=== PATIENT | male | born 1955 | race Caucasian/White ===

== ENCOUNTER → 2023-08-23 | Outpatient (CLI) | payer MEDICARE ==
[2023-08-23 11:18] LABS: INR 0.9 (<1.2); Partial Thromboplastin Time 25.7 sec (22.0-30.0); Prothrombin Time 10.2 sec (10.0-12.5)
[2023-08-23 15:43] LABS: HCT 32.3 % (39.6-50.0); HGB 11.7 g/dL (13.0-17.0); MCH 33.1 pg (27.0-32.0); MCHC 36.2 g/dL (32.0-37.0); MCV 91.2 FL (80.0-97.0); Mean Platelet Volume 10.2 FL (9.5-12.2); NRBC Per 100 WBC 0 X 10*3/uL (0.00-0.01); Platelet Count 266 X 10*3/uL (140-440); RBC 3.54 X 10*6/uL (4.40-5.60); RDW 12.4 % (11.5-14.5); WBC 4.21 X 10*3/uL (4.50-10.00)
== END | disposition home or self-care (01) ==
LOC: LABWHC1 10:08
PROVIDERS: ATTEND Orthopaedic Surgery Sports Medicine
DX: Z01.812 Encounter for preprocedural laboratory examination (principal); M17.12 Unilateral primary osteoarthritis, left knee; Z22.322 Carrier or suspected carrier of Methicillin resistant Staphylococcus aureus
CPT/HCPCS: 36415; 85027; 85610; 85730; 87070

== ENCOUNTER 2023-09-19 05:35 | Day surgery (SDC) | payer MEDICARE ==
[~2023-09-19 05:35] MED LIST: ONDANSETRON 4 MG/2 ML VIAL IVP PRN; TRANEXAMIC 1,000 MG/100ML-NACL 1,000 MG in SALINE 1 100ML.BAG IVPB PRN
[2023-09-19] MEDS ORDERED: LIDOCAINE 1% (10MG/ML) FOR IV START INTRADERMA PRN (06:10)
[2023-09-19] MEDS: LACTATED RINGERS 1,000 ML IV ONE ×2 (06:13→09:11)
[2023-09-19] MEDS: DEXAMETHASONE SOD PHOSPHATE 4 MG/ML 1 ML VIAL IV ONE (06:42)
[2023-09-19] MEDS: GABAPENTIN 300 MG CAP PO PRN (06:42)
[2023-09-19] MEDS: ONDANSETRON 4 MG/2 ML VIAL IVP ONE (06:42)
[2023-09-19] MEDS: ACETAMINOPHEN TAB 500 MG TAB PO PRN (06:43)
[2023-09-19] MEDS: LACTATED RINGERS 1,000 ML IV SCH ×2 (06:43→11:31)
[2023-09-19] MEDS: MELOXICAM 7.5 MG TAB PO PRN (06:44)
[2023-09-19] MEDS: MIDAZOLAM 2 MG/2 ML VIAL IVP ONE ×2 (06:51→07:18)
[2023-09-19] MEDS ORDERED: HYDROmorphone 0.5 MG/0.5 ML SYRINGE IVP PRN ×3 (07:00→09:42)
[2023-09-19] MEDS ORDERED: MIDAZOLAM 2 MG/2 ML VIAL IV PRN (07:00)
[2023-09-19] MEDS ORDERED: fentaNYL (PF) 50 MCG/ML 2 ML AMP IVP PRN (07:00)
[2023-09-19] MEDS: ceFAZolin 3,000 MG in SODIUM CHLORIDE 0.9% IRRIGATIO 3,000 ML IRRIGATION ONE (07:36)
[2023-09-19] MEDS ORDERED: bisacodyL 10 MG SUPP RECTAL PRN (09:42)
[2023-09-19] MEDS ORDERED: NALOXONE 0.4 MG/ML 1 ML VIAL IV PRN (09:42)
[2023-09-19] MEDS ORDERED: ONDANSETRON 4 MG/2 ML VIAL IVP PRN (09:42)
[2023-09-19] MEDS ORDERED: NA PHOS,M-B/NA PHOS,DI-BA 133 ML ENEMA RECTAL PRN (09:42)
[2023-09-19] MEDS ORDERED: MAGNESIUM HYDROXIDE 2,400 MG/30 ML CUP PO PRN (09:42)
[2023-09-19] MEDS ORDERED: hydrOXYzine pamoate 25 MG CAP PO PRN (09:42)
[2023-09-19] MEDS: droPERidol 5 MG/2 ML VIAL IVP STA (09:46)
[2023-09-19] MEDS: HYDROmorphone 1 MG/ML 1 ML SYRINGE IVP PRN (10:00)
[2023-09-19] MEDS: KETOROLAC 15 MG/ML 1 ML VIAL IVP STA (10:00)
[2023-09-19] MEDS: ROPIVACAINE 1,100 MG, SODIUM CHLORIDE 0.9% 500 ML 330 ML, EMPTY PAIN BALL 1 EACH MISCELLANE PRN (10:01)
--- NOTE | 2023-09-19 10:15 | XR ---
EXAMINATION TYPE: XR knee limited LT DATE OF EXAM: 09/19/2023 CLINICAL HISTORY: Postoperative evaluation Two views of the left knee are submitted. Identified are changes of total knee arthroplasty with fem oral and tibial components appearing well seated. Postsurgical soft tissue changes are noted. Align ment is anatomic.
--- NOTE | 2023-09-19 10:34 | OP ---
OPERATIVE REPORT DATE OF SERVICE : 09/19/2023 [employer] SUPERVISOR: Char Blanc PA-C. PREOPERATIVE DIAGNOSIS: Left knee osteoarthrosis. POSTOPERATIVE DIAGNOSIS: Left knee osteoarthrosis. OPERATION: Left total knee arthroplasty. ANESTHESIA: Spinal with sedation. ESTIMATED BLOOD LOSS: 100 mL. TOURNIQUET TIME: 68 minutes at 250 mmHg. COMPLICATIONS: None apparent. DRAINS: None. DISPOSITION: Postanesthesia care unit. INDICATIONS FOR PROCEDURE: Peter is a very pleasant 68-year-old male with longstanding history of left knee pain. History and physical examination are consistent with advanced left knee osteoarthrosis. He has been through significant operative management up to this point. Further treatment options were discussed, and he has decided to go forward with a left total knee arthroplasty. The risks of procedure were discussed with him in detail. These risks included, but are not limited to risk of infection, nerve damage, bleeding, pain, and a small risk of deep vein thrombosis which could lead to fatal pulmonary embolism. There is also small risk of loosening of the implant, which could require revision operation. The patient understands these risks. All of his questions with regard to the procedure were answered to his satisfaction. Appropriate informed consent was obtained. DESCRIPTION OF PROCEDURE: The patient was identified in the preoperative holding area. Surgical site was marked by both the patient and myself. He was given 2 g of Ancef IV for prophylactic purposes. He was then transported to the operative suite. He was placed supine on the operating room table. A spinal anesthetic was then administered and dosed per the Anesthesia Department without apparent complication. Examination under anesthesia was then performed. The patient was 5 to 7 degrees shy of full extension. He had 100 degrees of flexion. Medial collateral ligament, lateral collateral ligament, and posterior cruciate ligaments were stable. Tourniquet was then placed high on the left upper thigh well-padded in preparation for surgery. The patient's left lower extremity was then prepped and draped in usual sterile fashion. Standard surgical pause was undertaken to ensure that we were operating the correct site and that appropriate preoperative antibiotics had been given. All staff in the room were in agreement, and then we proceeded. The outlines of the patella were marked with a surgical pen. A planned 12 cm vertical incision centered over the patella was marked with a surgical pen. The leg was then exsanguinated with an Esmarch dressing. The knee was then flexed, and the tourniquet was inflated to 250 mmHg. The total tourniquet time for the procedure was 68 minutes. Incision was then made with a 10-blade scalpel. Dissection was carried down sharply overlying fascia. Great care was taken to minimize the skin flaps. The knee was then exposed using a standard medial parapatellar approach. A small cuff of quadriceps tendon was then left for suturing. He was in quite a bit of varus preoperatively. A standard medial release was then made. The superficial medial collateral ligament was dissected off the bone around to the posterior aspect of the proximal tibia. The medial meniscus was then excised as well. The lateral meniscus was also released anteriorly. The leg was then externally rotated. The patella was everted. The knee was flexed. Retractors were then placed to protect the collateral ligaments. I then proceeded to remove the infrapatellar fat pad. This was excised sharply tangentially with the fibers of the patellar tendon. I then proceeded to remove the peripheral osteophytes. This was done with a rongeur. I then proceeded with the distal femoral resection. He did have a flexion contracture. A planned 11 mm resection was then done. The femoral canal was then entered in the midline, the femur approximately 10 mm anterior to the origin of the posterior cruciate ligament. The elma was then advanced down the center of the femur and placed intramedullary. Based on the preoperative radiographs, the angle between the anatomic and mechanical axis of the femur was approximately 4 to 5 degrees. The valgus angle of the distal femoral cutting guide was set at 4 degrees for the left knee. The distal femoral cutting guide was then advanced over the intramedullary elma. This was seated firmly against the femur. Then, as mentioned, planned to take 11 mm off the distal femur. The cutting block was then secured onto the femur with pins. The jig was then removed. The distal femoral cut was made through the slot of the block. The pins were then removed. The distal femoral cutting block was removed. The accuracy of the distal femoral cuts was checked with 2 flat bars. I then proceeded with femoral sizing. Posterior referencing sizing guide was held firmly against the resected distal surface of the femur. The posterior condyles were resting on the posterior plane of the guide. The sizing stylus was then placed onto the anterior femur. The size was measured as a size 10. I then assessed for femoral rotation. The plan was for 3 degrees of external rotation. Three degrees of external rotation was placed onto the jig. These holes were then marked. I then confirmed the rotation by 3 separate methods. This was done using the epicondylar axis as well as Whitesides line and posterior referencing. It was deemed that the external rotation was proper. I then went forward with placement of the femoral cutting block. This was placed over the previously-placed pin holes. The Alverto wing was then placed on the anterior slots to ensure that we would not notch the anterior femur with the anterior femoral cut. I then proceeded with the anterior femoral cut. This was flushed with the anterior cortex of the femur. The posterior cuts were then made followed by the anterior chamfer cut, then the posterior chamfer cut. The cutting block was then removed. Throughout the resection, the collateral ligaments were protected with retractors. I then placed a trial size 10 femur. It fit very nice mediolateral and flush with the distal end of the femur. The drill holes were then made. I then proceeded with the tibial cut. I planned for cruciate-retaining knee. The guide was placed and set for varus, valgus, and for slope. Height set for approximate 2 mm resection from the medial tibial plateau, which was the lower side. I was happy with the alignment and the amount of resection. The cutting block was then pinned to the proximal tibia. The alignment elma was removed and the proximal tibia was resected with a reciprocating saw. Again, this was done with retractors protecting the collateral ligaments as well as the posterior cruciate ligament. I then proceeded to evaluate the flexion and extension gaps. A 10 mm block was then placed. The flexion extension gaps were equal. I then proceeded with resection of posterior osteophytes. He had very minimal posterior osteophytes. This was done using a curved osteotome. This resected the posterior osteophytes, and posterior capsular stripping was done off the posterior aspect of the femur. The osteophytes were then removed. I then proceeded to resect the patella. The thickness of the patella was measured using the caliper. The thickness was approximately 24 mm. The thickness of the anticipated patellar dome was taken into account. Resection was then performed and confirmed to be equal in 4 quadrants using a caliper. Approximately 14 mm of bone remained after resection. A 32 x 8.5 mm standard patellar trial was then placed. The holes were drilled and the trial was then placed. I then proceeded with sizing tibial plate. A size F tibial plate fit very nicely. I then placed the trial femur, the tibial tray, and the patellar button. A 10 mm trial tibial insert was also placed. The components fit very nicely. He had full extension and flexion. The extension and flexion gaps were equal and stable to both varus and valgus stress. The patella tracked appropriately. The tibial tray rotation was then marked with a Bovie. This was externally rotated properly. I then proceeded with tibial preparation. I first drilled the femoral holes and removed the femoral component. The tibial tray was then set for proper external rotation as well as medial lateral placement onto the tibia. It was then pinned into place. I then proceeded with punching the keel. I then decided to proceed with cementing of all our components. The knee was thoroughly irrigated with sterile saline solution via pulse lavage. The lateral geniculate artery was identified and cauterized. All blood was removed from the bone of the tibia, femur, and patella with pulsed lavage. I then proceeded with cementing. Two packs of antibiotic bone cement prepared on the back table by manager surgical. I then proceeded with cementing of the tibia first. Cement was impacted in the keel as well as deeply seated into the bone. A second coat cement was then placed. The tibia was then impacted into place. Excess cement was removed with Ashley's and Jokers. I then proceeded with cementing of the femoral component. The femoral component was also cemented using standard technique. Excess cement was removed. A 10 mm trial to the tibial insert was then placed in the knee. It was brought into full extension with a constant axial load placed until the cement had hardened. The patellar component was also cemented. This was held firmly with a compressive device until the cement had dried. When the cement had dried, the knee was taken out of extension. All excess cement was removed from around the prosthesis. I then trialed the knee with a 10 mm insert. Flexion and extension gaps were appropriate. I then trialed with a 12 mm insert. Flexion and extension gaps felt much better. The knee was stable with a 12 mm insert. It came into full extension. I decided to go forward with the 12 mm medial congruent cross-linked cruciate-retaining hip tibial insert. Polyethylene was then placed on the tibial tray and locked into place. The knee was then reduced. The knee was again further irrigated with sterile saline solution with antibiotic added. The tourniquet was then deflated. Total tourniquet time for the procedure was 68 minutes at 250 mmHg. Final components were Radha Persona size 10 cruciate-retaining femoral component, size F tibial tray, a 12 mm medial congruent cruciate-retaining polyethylene insert, and a 32 x 8.5 mm patella. I then proceeded with closure. Again, the knee was thoroughly irrigated. The quadriceps tendon and the medial retinaculum were reapproximated with #2 Ethibond suture. The extensor mechanism was then closed with a running #2 Quill suture. Subcutaneous tissues were closed with 2-0 Vicryl interrupted suture. The skin was closed with a running 3-0 Quill suture. Dermabond was applied to the incision. Sterile compressive dressings were applied. All sponge and needle counts were deemed correct prior to closure. The patient tolerated the procedure without apparent complication. He was transferred to recovery room in stable condition. MMODL / IJN: [id number] /
[2023-09-19] MEDS: hydrALAZINE HCL 20 MG/ML 1 ML VIAL IVP STA (11:27)
[2023-09-19] MEDS: HYDROcodone/APAP 10-325MG 1 EACH TAB PO PRN (11:44)
[2023-09-19] MEDS ORDERED: CYCLOBENZAPRINE 10 MG TAB PO PRN (11:45)
--- NOTE | 2023-09-19 17:42 | P.CONS ---
History of Present Illness - Reason for Consult Consult date: 09/19/23 Medical management Requesting physician: Justin Ramey - Chief Complaint Left knee surgery - History of Present Illness This is a pleasant 68-year-old patient who follows with Dr. Amor Silva/Ronald Powell. Chronic stable medical condition include GERD, hypertension, osteoarthritis, pulmonary embolism over 3 years ago with COVID, pain stimulator for arm pain. Has had multiple surgeries in the right arm back surgeries because of accident. Has had a previous gastric bypass. Patient is undergone left total knee arthroplasty. Some pain is present. Family is at bedside. No nausea vomiting. Denies any cardiac symptoms. 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 Smoked for 30 years 1 pack a day stopped in 1997. No alcohol. Physical examination: VITAL SIGNS: 97.8, 106, 17, 136/77, 93% room air GENERAL: BMI 31.7, reclining bed awake comfortable. EYES: Pupils equal. Conjunctiva savanna l. HEENT: External appearance of nose and ears normal, oral cavity grossly normal. NECK: JVD not raised; masses not palpable. HEART: First and second heart sounds are normal; no edema. LUNGS: Respiratory rate normal; clear to auscultation. ABDOMEN: Soft, nontender, liver spleen not palpable, no masses palpable. PSYCH: Alert and oriented x3; mood and affect savanna l. MUSCULOSKELETAL:No Clubbing/cyanosis;muscles-grossly intact. Tank wrap to her left knee. OA. NEUROLOGICAL: Cranial nerves grossly intact; no facial asymmetry, power and sensation grossly intact. LYMPHATICS: No lymph nodes palpable in the axilla and neck INVESTIGATIONS, reviewed in the clinical context: August 22: White count 4.2 hemoglobin 11.7 platelets 266 Assessment and plan: -Left total knee arthroplasty Aspirin for DVT prophylaxis. IV cefazolin for infection prophylaxis. Pain control -Chronic pain in the lower back and right arm. Has a Dilaudid pain pump -Essential hypertension Losartan 50 mg a day -GERD Prilosec 20 mg a day -Muscle spasms Flexeril -History of gastric bypass surgery -Obesity BMI 31.7 Weight loss measures -Care was discussed with the patient. Questions answered. Thank you Dr. Ramey Past Medical History Past Medical History: GERD/Reflux, Hypertension, Musculoskeletal Disorder, Osteoarthritis (OA), Pulmonary Embolus (PE) Additional Past Medical History / Comment(s): PE >3 yrs ago due to covid, pain stimulator for arm pain, pain pump History of Any Multi-Drug Resistant Organisms: None Reported Past Surgical History: Back Surgery, Bariatric Surgery, Hernia Repair, Orthopedic Surgery Additional Past Surgical History / Comment(s): back surgery fusion w hardware-5 back surgeries, multiple surgeries right arm w/hardware due to accident, pain stimulator cervical to help w/arm pain, gastric bypass, pain pump insertion Past Anesthesia/Blood Transfusion Reactions: No Reported Reaction Additional Past Anesthesia/Blood Transfusion Reaction / Comm: no hx. of blood transfusion Past Psychological History: No Psychological Hx Reported Smoking Status: Former smoker Past Alcohol Use History: None Reported Additional Past Alcohol Use History / Comment(s): quit smoking 1997, smoked 30 yrs., 1ppd Past Drug Use History: None Reported - Past Family History Daughter(s) Family Medical History: Deep Vein Thrombosis (DVT) Medications and Allergies Home Medications Medication Instructions Recorded Confirmed Type Omeprazole [PriLOSEC] 20 mg PO DAILY 02/24/17 09/19/23 History Cetirizine HCl [Zyrtec] 10 mg PO DAILY 09/17/23 09/19/23 History Cyclobenzaprine [Flexeril] 10 mg PO BID PRN 09/17/23 09/19/23 History Dilaudid Pain Pump INTRATHECA CONTINUOUS 09/17/23 History HYDROcodone/APAP 7.5-325MG [[place] 1 tab PO TID PRN 09/17/23 09/19/23 History 7.5-325] Losartan Potassium 50 mg PO DAILY 09/17/23 09/19/23 History ondansetron HCL [Ondansetron HCl] 8 mg PO DAILY PRN 09/17/23 09/19/23 History Cholecalciferol (Vitamin D3) 2,000 unit PO DAILY 09/18/23 09/19/23 History [Vitamin D3 (50 Mcg = 2000 Iu) Chew Tab] Cholecalciferol (Vitamin D3) 250 mcg PO DIRECTED 09/18/23 09/19/23 History [Vitamin D3] Cyanocobalamin (Vitamin B-12) 1,000 mcg PO DAILY 09/18/23 09/19/23 History [Vitamin B-12] Ferrous Sulfate [Feosol] 65 mg PO DAILY 09/18/23 09/19/23 History Multivitamins, Thera [Multivitamin 1 tab PO DAILY 09/18/23 09/19/23 History (formulary)] Zinc With Vitamin C 1 tab PO DAILY 09/18/23 09/19/23 History Aspirin [Adult Low Dose Aspirin EC] 81 mg PO BID #1 tab 09/19/23 Rx HYDROcodone/APAP 10-325MG [[place] 1 tab PO Q6HR PRN #28 tab 09/19/23 Rx 10-325] Meloxicam 7.5 mg PO DAILY #30 tab 09/19/23 Rx Ondansetron Odt [Zofran Odt] 4 mg PO Q8HR PRN #14 tab 09/19/23 Rx Sennosides-Docusate Sodium 1 tab PO BID #60 tablet 09/19/23 Rx [Senokot-S] Allergies Allergy/AdvReac Type Severity Reaction Status Date / Time blueberry Allergy Rash/Hives Verified 09/19/23 06:24 Physical Exam Vitals: Vital Signs Temp Pulse Pulse Resp BP BP Pulse Ox 09/19/23 10:50 73 16 155/80 95 09/19/23 10:41 167/83 09/19/23 10:36 68 16 181/88 95 09/19/23 10:21 59 L 16 187/98 100 09/19/23 10:06 58 L 22 198/95 100 09/19/23 09:51 59 L 24 204/93 100 09/19/23 09:36 97.6 F 64 28 H 190/92 100 09/19/23 07:17 59 L 16 160/74 97 09/19/23 06:24 98 F 58 L 16 156/80 98 Intake and Output 09/18/23 09/19/23 09/19/23 22:59 06:59 14:59 Intake Total 200 951 Output Total 100 Balance 200 851 Intake: IV 200 951 Output: Estimated Blood Loss 100 Other: Weight 100.2 kg 100.2 kg
--- NOTE | 2023-09-19 20:57 | P.ANPRN ---
Procedure Note - Anesthesia - Nerve Block Performed Left Adductor Canal Infusion Time Out Performed: Yes Date of Procedure: 09/19/23 Procedure Start Time: 06:50 Procedure Stop Time: 06:59 Location of Patient: PreOp Indication: Acute Post-Operative Pain, Requested by Surgeon Sedation Type: Sedate with meaningful contact maintained Preparation: Sterile Prep, Sterile Dressing Position: Supine Catheter: Indwelling Needle Types: Pajunk Needle Gauge: 21 Ultrasound used to visualize needle placement: Yes Ultrasound used to observe medication spread: Yes Blood Aspirated: No Pain Paresthesia on Injection Noted: No Resistance on Injection: Normal Image Stored and Saved: Yes Events: Uneventful and Well Tolerated (Ropivacaine 0.5% 20 cc plus dexamethasone 4 mg)
--- NOTE | 2023-09-19 20:58 | P.ANPRN ---
Procedure Note - Anesthesia - Nerve Block Performed Left iPack Single Time Out Performed: Yes Date of Procedure: 09/19/23 Procedure Start Time: 07:00 Procedure Stop Time: 07:03 Location of Patient: PreOp Indication: Acute Post-Operative Pain, Requested by Surgeon Sedation Type: Sedate with meaningful contact maintained Preparation: Sterile Prep Position: Supine Needle Types: Pajunk Needle Gauge: 21 Ultrasound used to visualize needle placement: Yes Ultrasound used to observe medication spread: Yes Blood Aspirated: No Pain Paresthesia on Injection Noted: No Resistance on Injection: Normal Image Stored and Saved: Yes Events: Uneventful and Well Tolerated (Ropivacaine 0.5% 20 cc plus dexamethasone 4 mg)
[2023-09-19] MEDS ORDERED: TEMAZEPAM 15 MG CAP PO PRN (21:00)
[2023-09-19] MEDS: SENNOSIDES-DOCUSATE SODIUM 1 EACH TAB PO SCH (21:13)
[2023-09-19] MEDS: ASPIRIN 81 MG PO SCH (21:13)
[2023-09-20] MEDS: ONDANSETRON 4 MG TAB PO PRN (01:53)
[2023-09-20] MEDS: PANTOPRAZOLE 40 MG TABLET PO SCH (05:13)
[2023-09-20] MEDS: MELOXICAM 7.5 MG TAB PO SCH (08:23)
[2023-09-20] MEDS: FERROUS SULFATE 325 MG TAB PO SCH (08:23)
[2023-09-20] MEDS: LOSARTAN 50 MG TAB PO SCH (08:24)
[2023-09-20] MEDS: MULTIVITAMINS, THERA 1 EACH TAB PO SCH (08:24)
[2023-09-20] MEDS: LORATADINE 10 MG TAB PO SCH (08:25)
[2023-09-20] MEDS: CHOLECALCIFEROL 25 MCG (1000 IU) TABLET PO SCH (08:29)
--- NOTE | 2023-09-20 08:55 | P.DS ---
Providers Expected date of discharge: 09/20/23 Attending physician: Justin Ramey Consults: 09/19/23 10:42 Consult Physician Urgent Consulting Provider: Pedro Guo Consult Reason/Comments: Medical management Do you want consulting provider notified?: Yes Primary care physician: Amor Silva - Discharge Diagnosis(es) (1) Primary localized osteoarthritis of left knee Current Visit: Yes Status: Acute (2) Status post total left knee replacement Current Visit: Yes Status: Acute Hospital Course: This is a 68-year-old male who was last seen with complaint of continued left knee pain. The patient has a known history of degenerative arthritis of the lef t knee and presents to discuss surgical options. After discussion and consideration the patient elects to proceed with total left knee arthroplasty. The patient is seen preoperatively by his primary care physician and cleared for surgery. The patient is admitted to [facility] for total left knee arthroplasty. The procedures performed without complication or sequelae. He is doing well postoperatively. Vital signs are stable at discharge. Labs are stable at discharge. the patient is ambulating well with walker with minimal assistance. The patient is discharged to home on postop day # 1 pending medical clearance. Please see orders and refer to the [facility] for accurate list of medications. Patient Condition at Discharge: Good Plan - Discharge Summary Discharge Rx Participant: Yes New Discharge Prescriptions: New Meloxicam 7.5 mg PO DAILY #30 tab HYDROcodone/APAP 10-325MG [[place] 10-325] 1 tab PO Q6HR PRN #28 tab PRN Reason: Pain Aspirin [Adult Low Dose Aspirin EC] 81 mg PO BID #1 tab Sennosides-Docusate Sodium [Senokot-S] 1 tab PO BID #60 tablet Ondansetron Odt [Zofran Odt] 4 mg PO Q8HR PRN #14 tab PRN Reason: Nausea No Action Omeprazole [PriLOSEC] 20 mg PO DAILY Cetirizine HCl [Zyrtec] 10 mg PO DAILY HYDROcodone/APAP 7.5-325MG [[place] 7.5-325] 1 tab PO TID PRN PRN Reason: Pain Losartan Potassium 50 mg PO DAILY ondansetron HCL [Ondansetron HCl] 8 mg PO DAILY PRN PRN Reason: Nausea Dilaudid Pain Pump INTRATHECA CONTINUOUS Cholecalciferol (Vitamin D3) [Vitamin D3] 250 mcg PO DIRECTED Cyclobenzaprine [Flexeril] 10 mg PO BID PRN PRN Reason: Muscle Spasm Ferrous Sulfate [Feosol] 65 mg PO DAILY Multivitamins, Thera [Multivitamin (formulary)] 1 tab PO DAILY Zinc With Vitamin C 1 tab PO DAILY Cyanocobalamin (Vitamin B-12) [Vitamin B-12] 1,000 mcg PO DAILY Cholecalciferol (Vitamin D3) [Vitamin D3 (50 Mcg = 2000 Iu) Chew Tab] 2,000 unit PO DAILY Discharge Medication List Omeprazole [PriLOSEC] 20 mg PO DAILY 02/24/17 [History] Cetirizine HCl [Zyrtec] 10 mg PO DAILY 09/17/23 [History] Cyclobenzaprine [Flexeril] 10 mg PO BID PRN 09/17/23 [History] Dilaudid Pain Pump INTRATHECA CONTINUOUS 09/17/23 [History] HYDROcodone/APAP 7.5-325MG [[place] 7.5-325] 1 tab PO TID PRN 09/17/23 [History] Losartan Potassium 50 mg PO DAILY 09/17/23 [History] ondansetron HCL [Ondansetron HCl] 8 mg PO DAILY PRN 09/17/23 [History] Cholecalciferol (Vitamin D3) [Vitamin D3 (50 Mcg = 2000 Iu) Chew Tab] 2,000 unit PO DAILY 09/18/23 [History] Cholecalciferol (Vitamin D3) [Vitamin D3] 250 mcg PO DIRECTED 09/18/23 [History] Cyanocobalamin (Vitamin B-12) [Vitamin B-12] 1,000 mcg PO DAILY 09/18/23 [History] Ferrous Sulfate [Feosol] 65 mg PO DAILY 09/18/23 [History] Multivitamins, Thera [Multivitamin (formulary)] 1 tab PO DAILY 09/18/23 [History] Zinc With Vitamin C 1 tab PO DAILY 09/18/23 [History] Aspirin [Adult Low Dose Aspirin EC] 81 mg PO BID #1 tab 09/19/23 [Rx] HYDROcodone/APAP 10-325MG [[place] 10-325] 1 tab PO Q6HR PRN #28 tab 09/19/23 [Rx] Meloxicam 7.5 mg PO DAILY #30 tab 09/19/23 [Rx] Ondansetron Odt [Zofran Odt] 4 mg PO Q8HR PRN #14 tab 09/19/23 [Rx] Sennosides-Docusate Sodium [Senokot-S] 1 tab PO BID #60 tablet 09/19/23 [Rx] Follow up Appointment(s)/Referral(s): Justin Ramey MD [STAFF PHYSICIAN] - 2 Weeks Activity/Diet/Wound Care/Special Instructions: May bear wt as tolerated w walker. May change dressing 48h post op. May shower 48h post op.
[2023-09-20] MEDS ORDERED: CHOLECALCIFEROL 25 MCG (1000 IU) TABLET PO SCH (09:00)
--- NOTE | 2023-09-20 09:29 | P.PN ---
Progress Note - Text 09/20/23 615am 68-year-old male status post total knee replacement, patient has an On-Q pump for for postop pain control, solution is running at 8 cc an hour with a VAS of 5. Dressing clean dry and intact. Plan to continue On-Q pump infusion
[2023-09-20 10:33] LABS: Basophils # (A) 0.01 X 10*3/uL (0.00-0.10); Basophils % (A) 0.1 %; Eosinophils # (A) 0.06 X 10*3/uL (0.04-0.35); Eosinophils % (A) 0.7 %; HCT 30.6 % (39.6-50.0); HGB 10.5 g/dL (13.0-17.0); Lymphocytes # (A) 1.71 X 10*3/uL (0.90-5.00); Lymphocytes % (A) 21.3 %; MCH 32.2 pg (27.0-32.0); MCHC 34.3 g/dL (32.0-37.0); MCV 93.9 FL (80.0-97.0); Mean Platelet Volume 9.7 FL (9.5-12.2); Monocytes # (A) 0.79 X 10*3/uL (0.20-1.00); Monocytes % (A) 9.8 %; NRBC Per 100 WBC 0 X 10*3/uL (0.00-0.01); Neutrophils # (A) 5.44 X 10*3/uL (1.80-7.70); Neutrophils % (A) 67.9 %; Platelet Count 242 X 10*3/uL (140-440); RBC 3.26 X 10*6/uL (4.40-5.60); RDW 12.4 % (11.5-14.5); WBC 8.03 X 10*3/uL (4.50-10.00)
[2023-09-20 10:40] VITALS: BP 157/74; PULSE 85; RESP 18; TEMP 97.6
--- NOTE | 2023-09-20 17:02 | P.PN ---
Progress Note - Text Progress Note Date: 09/20/23 - Chief Complaint Left knee surgery - History of Present Illness This is a pleasant 68-year-old patient who follows with Dr. Amor Silva/Ronald Powell. Chronic stable medical condition include GERD, hypertension, osteoarthritis, pulmonary embolism over 3 years ago with COVID, pain stimulator for arm pain. Has had multiple surgeries in the right arm back surgeries because of accident. Has had a previous gastric bypass. Patient is undergone left total knee arthroplasty. Some pain is present. Family is at bedside. No nausea vomiting. Denies any cardiac symptoms. September 19: Doing well. Did ambulate. Oral intake good. No new issues. Discussed. 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 Smoked for 30 years 1 pack a day stopped in 1997. No alcohol. Physical examination: VITAL SIGNS: 97.6, 85, 18, 157/74, 93% room air GENERAL:, Double EYES: Pupils equal. Conjunctiva savanna l. HEENT: External appearance of nose and ears normal, oral cavity grossly normal. NECK: JVD not raised; masses not palpable. HEART: First and second heart sounds are normal; no edema. LUNGS: Respiratory rate normal; clear to auscultation. ABDOMEN: Soft, nontender, liver spleen not palpable, no masses palpable. PSYCH: Alert and oriented x3; mood and affect savanna l. MUSCULOSKELETAL:No Clubbing/cyanosis;muscles-grossly intact. Tank wrap to her left knee. OA. INVESTIGATIONS, reviewed in the clinical context: September 19: White count 8.0 hemoglobin 10.5 platelets 242 August 22: White count 4.2 hemoglobin 11.7 platelets 266 Assessment and plan: -Left total knee arthroplasty Aspirin for DVT prophylaxis. IV cefazolin for infection prophylaxis. Pain control -Chronic pain in the lower back and right arm. Has a Dilaudid pain pump -Acute postprocedure blood loss anemia expected from surgery Ferrous sulfate -Essential hypertension Losartan 50 mg a day -GERD Prilosec 20 mg a day -Muscle spasms Flexeril -History of gastric bypass surgery Patient takes multiple supplements -Obesity BMI 31.7 Weight loss measures Discussed with patient. Follow-up PCP. Thank you Dr. Ramey Past Medical History Past Medical History: GERD/Reflux, Hypertension, Musculoskeletal Disorder, Osteoarthritis (OA), Pulmonary Embolus (PE) Additional Past Medical History / Comment(s): PE >3 yrs ago due to covid, pain stimulator for arm pain, pain pump History of Any Multi-Drug Resistant Organisms: None Reported Past Surgical History: Back Surgery, Bariatric Surgery, Hernia Repair, Orthopedic Surgery Additional Past Surgical History / Comment(s): back surgery fusion w hardware-5 back surgeries, multiple surgeries right arm w/hardware due to accident, pain stimulator cervical to help w/arm pain, gastric bypass, pain pump insertion Past Anesthesia/Blood Transfusion Reactions: No Reported Reaction Additional Past Anesthesia/Blood Transfusion Reaction / Comm: no hx. of blood transfusion Past Psychological History: No Psychological Hx Reported Smoking Status: Former smoker Past Alcohol Use History: None Reported Additional Past Alcohol Use History / Comment(s): quit smoking 1997, smoked 30 yrs., 1ppd Past Drug Use History: None Reported
== END 2023-09-20 13:35 | disposition home health service (06) ==
LOC: OR 05:35 → 4SSUR 09:28 → OR 09-20 13:35
PROVIDERS: ATTEND Orthopaedic Surgery Sports Medicine
DX: M17.12 Unilateral primary osteoarthritis, left knee (principal); D62 Acute posthemorrhagic anemia; E66.9 Obesity, unspecified; G89.18 Other acute postprocedural pain; G89.29 Other chronic pain; I10 Essential (primary) hypertension; K21.9 Gastro-esophageal reflux disease without esophagitis; Z68.31 Body mass index [BMI] 31.0-31.9, adult; Z79.1 Long term (current) use of non-steroidal anti-inflammatories (NSAID); Z79.82 Long term (current) use of aspirin; Z79.899 Other long term (current) drug therapy; Z86.16 Personal history of COVID-19; Z86.711 Personal history of pulmonary embolism; Z98.84 Bariatric surgery status; Z98.890 Other specified postprocedural states
CPT/HCPCS: 97162; 64999; 64448; 85025; 73560; 27447; C1776; C1713; C1751; J2250; J1100; J0690 ×3; J2405; J1170 ×2; J2795; J1885; J1790

== ENCOUNTER 2024-05-21 07:23 | Day surgery (SDC) | payer MEDICARE ==
[2024-05-18 14:12] VITALS: BMI 34.2
[~2024-05-21 07:23] MED LIST changes: +LIDOCAINE 1% (10MG/ML) FOR IV START INTRADERMA PRN; +fentaNYL (PF) 50 MCG/ML 2 ML AMP IVP PRN
[2024-05-21] MEDS: IV FLUID CONTINUATION 1,000 ML IV ONE ×2 (08:22→09:34)
[2024-05-21] MEDS: DEXAMETHASONE SOD PHOSPHATE 4 MG/ML 1 ML VIAL IV ONE (08:23)
[2024-05-21] MEDS: ONDANSETRON 4 MG/2 ML VIAL IVP ONE (08:23)
[2024-05-21] MEDS: MELOXICAM 7.5 MG TAB PO PRN (08:24)
[2024-05-21] MEDS: LACTATED RINGERS 1,000 ML IV SCH ×2 (08:24→14:40)
[2024-05-21] MEDS: ACETAMINOPHEN TAB 500 MG TAB PO PRN (08:24)
[2024-05-21] MEDS: GABAPENTIN 300 MG CAP PO PRN (08:24)
[2024-05-21] MEDS: MIDAZOLAM 2 MG/2 ML VIAL IV PRN (08:31)
[2024-05-21] MEDS ORDERED: MAGNESIUM HYDROXIDE 2,400 MG/30 ML CUP PO PRN (09:10)
[2024-05-21] MEDS ORDERED: NA PHOS,M-B/NA PHOS,DI-BA 133 ML ENEMA RECTAL PRN (09:10)
[2024-05-21] MEDS ORDERED: bisacodyL 10 MG SUPP RECTAL PRN (09:10)
[2024-05-21] MEDS ORDERED: NALOXONE 0.4 MG/ML 1 ML VIAL IV PRN (09:10)
[2024-05-21] MEDS ORDERED: traMADol 50 MG TAB PO PRN (09:10)
[2024-05-21] MEDS ORDERED: HYDROmorphone 0.5 MG/0.5 ML SYRINGE IVP PRN ×2 (09:10)
[2024-05-21] MEDS ORDERED: oxyCODONE-APAP 7.5-325MG 1 EACH TAB PO PRN (09:13)
[2024-05-21] MEDS ORDERED: SUCCINYLCHOLINE CHLORIDE 200 MG/10 ML VIAL IV ONE (09:32)
[2024-05-21] MEDS ORDERED: TRANEXAMIC 1,000 MG/100ML-NACL PREMIX BAG ONE (09:32)
[2024-05-21] MEDS ORDERED: ROPIVACAINE 5 MG/ML 30 ML VIAL ONE (09:32)
[2024-05-21] MEDS ORDERED: DEXAMETHASONE SOD PHOSPHATE 4 MG/ML 1 ML VIAL ONE (09:32)
[2024-05-21] MEDS ORDERED: PROPOFOL 10 MG/ML 20 ML VIAL IV ONE (09:32)
[2024-05-21] MEDS ORDERED: ROCURONIUM 10 MG/ML (5 ML VIAL) IV ONE (09:32)
[2024-05-21] MEDS ORDERED: hydrALAZINE HCL 20 MG/ML 1 ML VIAL ONE (09:32)
[2024-05-21] MEDS ORDERED: KETAMINE HCL IN 0.9 % NACL 50 MG/5 ML SYRINGE ONE (09:32)
[2024-05-21] MEDS ORDERED: NEOSTIGMINE 1 MG/ML 10 ML VIAL ONE (09:32)
[2024-05-21] MEDS ORDERED: GLYCOPYRROLATE 0.2 MG/ML 2 ML VIAL ONE (09:32)
[2024-05-21] MEDS ORDERED: LIDOCAINE 1% INJ 10MG/ML (20 ML MDV) ONE (09:32)
[2024-05-21] MEDS ORDERED: fentaNYL (PF) 50 MCG/ML 2 ML AMP ONE (09:32)
[2024-05-21] MEDS ORDERED: MIDAZOLAM 2 MG/2 ML VIAL ONE (09:32)
[2024-05-21] MEDS: ceFAZolin 3,000 MG in SODIUM CHLORIDE 0.9% IRRIGATIO 3,000 ML IRRIGATION ONE (09:58)
[2024-05-21] MEDS: LACTATED RINGERS 1,000 ML IV ONE (11:07)
[2024-05-21] MEDS: HYDROmorphone 0.5 MG/0.5 ML SYRINGE IVP PRN ×2 (11:54→14:40)
--- NOTE | 2024-05-21 12:14 | XR ---
EXAMINATION TYPE: XR knee limited RT DATE OF EXAM: 05/21/2024 12:09 PM COMPARISON: None. CLINICAL INDICATION: Male, 69 years old with history of Evaluation for Postop abnormality and alignme nt, pain TECHNIQUE: 2 view(s) obtained. FINDINGS: Tibial and femoral components have been placed. No acute fracture or dislocation evident. Postsurgica l soft tissue changes are evident. IMPRESSION: 1. No acute fractures post right knee replacement [facility], , 05/21/2024 12:12 PM
[2024-05-21] MEDS: ROPIVACAINE 1,100 MG, SODIUM CHLORIDE 0.9% 500 ML 330 ML, EMPTY PAIN BALL 1 EACH MISCELLANE PRN (12:28)
--- NOTE | 2024-05-21 12:56 | OP ---
OPERATIVE REPORT DATE OF SERVICE : 05/21/2024 PREOPERATIVE DIAGNOSIS: Right knee osteoarthrosis. POSTOPERATIVE DIAGNOSIS: Right knee osteoarthrosis. OPERATION: Right total knee arthroplasty. ANESTHESIA: General endotracheal. ESTIMATED BLOOD LOSS: 100 mL. TOURNIQUET TIME: 54 minutes at 250 mmHg. COMPLICATIONS: None apparent. DRAINS: None. DISPOSITION: Postanesthesia care unit. INDICATIONS FOR PROCEDURE: Peter is a very pleasant 69-year-old male with longstanding history of right knee pain. History and physical examination are consistent with advanced right knee osteoarthrosis. He has been through significant operative management up to this point. The treatment options were discussed, and he decided to go forward with a right total knee arthroplasty. Risks of procedure were discussed with him in detail. These risks included, but were not limited to, risk of infection, nerve damage, bleeding, pain, and a small risk of deep vein thrombosis which could lead to fatal pulmonary embolism. There is also small risk of loosening of the implant which could require revision operation. The patient understands these risks. All of his questions with regard to the procedure were answered to his satisfaction. Appropriate informed consent was obtained. DESCRIPTION OF PROCEDURE: The patient was identified in the preoperative holding area. Surgical site was marked by both the patient and myself. He was given 2 g of Ancef IV for prophylactic purposes. He was then transported to the operative suite. He was placed supine on the operating room table. General anesthetic was then administered and dosed per the Anesthesia Department without apparent complication. Examination under anesthesia was then performed. The patient was 2 to 3 degrees shy of full extension. He had 100 degrees of flexion and the medial collateral ligament, lateral collateral ligament, posterior cruciate ligaments were stable. Tourniquet was then placed high on the right upper thigh, well-padded in preparation for surgery. The patient's right lower extremity was then prepped and draped in usual sterile fashion. A standard surgical pause was undertaken to ensure that we were operating the correct site and that appropriate preoperative antibiotics had been given. All staff in the room were in agreement, and we proceeded. The outlines of the patella were marked with a surgical pen. A planned 12 cm vertical incision centered over the patella was marked with a surgical pen. Leg was then exsanguinated with an Esmarch dressing. The knee was then flexed, and tourniquet was inflated to 250 mmHg. Total tourniquet time for the procedure was 54 minutes. Incision was then made with a 10-blade scalpel. Dissection was carried down sharply to the overlying fascia. Great care was taken to minimize the skin flaps. The knee was then exposed using a standard medial parapatellar approach. A small cuff of quadriceps tendon was then left for suturing. He was in a bit of varus preoperatively. A standard medial release was then made. Superficial medial collateral ligament was dissected off the bone around to the posterior aspect of the proximal tibia. The medial meniscus was then excised as well. The lateral meniscus was also released anteriorly. The leg was then externally rotated. The patella was everted. The knee was flexed. Retractors were then placed to protect the collateral ligaments. I then proceeded to remove the infrapatellar fat pad. This was excised sharply tangentially with fibers of the patellar tendon. I then proceeded to remove the peripheral osteophytes. This was done with a rongeur. I then proceeded with the distal femoral resection. He did have near full extension. A planned 9 mm resection was then done. The femoral canal was then entered in the midline of the femur approximately 10 mm anterior to the origin of the posterior cruciate ligament. The elma was then advanced down the center of the femur and placed intramedullary. Based on the preoperative radiographs, the angle between the anatomic and mechanical axis of the femur was approximately 4 to 5 degrees. The valgus angle of the distal femoral cutting guide was then set at 4 degrees for the right knee. The distal femoral cutting guide was then advanced over the intramedullary elma. This was seated firmly against the femur. Then, as mentioned, planned to take 9 mm off the distal femur. The cutting block was then secured onto the femur with pins. The jig was then removed. The distal femoral cut was made through the slot of the block. The pins were then removed. The distal femoral cutting block was removed. The accuracy of the distal femoral cuts was checked with 2 flat bars. I then proceeded with femoral sizing. Posterior referencing sizing guide was held firmly against the resected distal surface of the femur. The posterior condyles were resting on the posterior plane of the guide. The sizing stylus was then placed onto the anterior femur. The size was measured as a size 10. I then assessed for femoral rotation. The plan was for 3 degrees of external rotation. Three degrees of external rotation was placed onto the jig. These holes were then marked. We then confirmed the rotation by 3 separate methods. This was done using epicondylar axis as well as Whitesides line, and posterior referencing. It was deemed that the external rotation was proper. I then went forward and placed the femoral cutting block. This was placed over the previously placed pin holes. The Alverto wing was then placed onto the anterior slots to ensure that we would not notch the anterior femur with the anterior femoral cut. I then proceeded with the anterior femoral cut. This was flushed with the anterior cortex of the femur. The posterior cuts were then made followed by the anterior chamfer cut, then the posterior chamfer cut. The cutting block was then removed. Throughout the resection, the collateral ligaments were protected with retractors. I then placed a trial size 10 femur. It fit very nice mediolateral and fit flush with the distal end of the femur. The drill holes were then made. I then proceeded with the tibial cut. I planned for cruciate-retaining knee. The guide was placed and set for varus and valgus and for slope. Height was set for approximate 2 mm resection from the medial tibial plateau, which was the lower side. I was happy with the alignment and amount of resection. The cutting block was then pinned to the proximal tibia. The alignment elma was removed and the proximal tibia was resected with a reciprocating saw. Again, this was done with retractors protecting the collateral ligaments as well as the posterior cruciate ligament. I then proceeded to evaluate the flexion and extension gaps. A 10 mm block was then placed. The flexion and extension gaps were equal. I then proceeded with resection of the posterior osteophytes. He had a fairly extensive posterior osteophytes. This was done using a curved osteotome. This resected the posterior osteophytes, and posterior capsular stripping was done off the posterior aspect of the femur at this time. The osteophytes were then removed. I then proceeded with resection of the patella. The thickness of the patella was measured using the caliper. The thickness was 24 mm. The thickness of the anticipated patellar dome was taken into account. Resection was then performed and confirmed to be equal in 4 quadrants using a caliper. Approximately 14 mm of bone remained after resection. A 32 x 8.5 mm standard patellar trial was then placed. The holes were drilled and the trial was then placed. I then proceeded with sizing of tibial plate. A size F tibial plate fit very nicely. I then placed the trial femur of the tibial tray and the patellar button. A 10 mm trial tibial insert was also placed. The components fit very nicely. He had full extension and flexion. The extension and flexion gaps were equal and stable to both varus and valgus stress. The patella tracked appropriately. The tibial tray rotation was then marked with a Bovie. This was externally rotated properly. I then proceeded with tibial preparation. I first drilled the femoral holes and removed the femoral component. The tibial tray was then set for proper external rotation as well as medial and lateral placement onto the tibia. It was then pinned into place. I then proceeded with punching the keel. I then decided to proceed with cementing of all our components. The knee was thoroughly irrigated with sterile saline solution via pulse lavage. The lateral geniculate artery was identified and cauterized. All blood was removed from the bone of the tibia, femur, and patella with pulsed lavage. I then proceeded with cementing. Two packs of antibiotic cement were prepared on the back table by surgical corsetier. I then proceeded with cementing of the tibia first. The cement was impacted in the keel as well as deeply seated into the bone. A second coat cement was then placed. The tibia was then impacted into place. Excess cement was removed with Plato's and Jokers. I then proceeded with cementing of the femoral component. The femoral component was also cemented using standard technique. Excess cement was removed. A 10 mm trial insert was then placed into the knee. It was brought into full extension with a constant axial load placed until the cement had hardened. The patellar component was then cemented. This was held firmly with compressive device until the cement had dried. When the cement had dried, the knee was taken out of extension. All excess cement was removed from around the prosthesis. I then trialed the knee with a 10 mm insert. Flexion and extension gaps were appropriate. The knee was stable. It came into full extension. I decided to go forward with a 10 mm medial congruent cross-linked cruciate- retaining tibial insert. Polyethylene was then placed on the tibial tray and locked into place. The knee was then reduced. The knee was again further irrigated with sterile saline solution with antibiotic added. The tourniquet was then deflated. Total tourniquet time for the procedure was 54 minutes at 250 mmHg. Final components were Radha Persona size 10 cruciate-retaining femoral component, a size F tibial tray, a 10 mm medial congruent cruciate-retaining polyethylene insert, and a 32 x 8.5 mm patella. I then proceeded with closure. Again, the knee was thoroughly irrigated. The quadriceps tendon and the medial retinaculum were reapproximated with #2 Ethibond suture. The extensor mechanism was then closed with a running #2 Quill suture. Subcutaneous tissues were then closed with 2-0 Vicryl interrupted suture. The skin was closed with a running 3-0 Quill suture. Dermabond was applied to the incision. Sterile compressive dressings were applied. All sponge and needle counts deemed correct prior to closure. The patient tolerated the procedure without apparent complication. He was transferred to the recovery room in stable condition. MMODL / IJN: [id number] /
--- NOTE | 2024-05-21 20:05 | P.ANPRN ---
Procedure Note - Anesthesia - Nerve Block Performed Right Adductor Canal Infusion Time Out Performed: Yes Date of Procedure: 05/21/24 Procedure Start Time: : Procedure Stop Time: : Location of Patient: PreOp Indication: Acute Post-Operative Pain, Requested by Surgeon Sedation Type: Sedate with meaningful contact maintained Preparation: Sterile Prep, Sterile Dressing Position: Supine Catheter: Indwelling Needle Types: Pajunk Needle Gauge: 21 Ultrasound used to visualize needle placement: Yes Ultrasound used to observe medication spread: Yes Blood Aspirated: No Pain Paresthesia on Injection Noted: No Resistance on Injection: Normal Image Stored and Saved: Yes Events: Uneventful and Well Tolerated (Ropivacaine 0.5% 20 cc plus dexamethasone 4 mg)
--- NOTE | 2024-05-21 20:06 | P.ANPRN ---
Procedure Note - Anesthesia - Nerve Block Performed Right iPack Single Time Out Performed: Yes Date of Procedure: 05/21/24 Procedure Start Time: 08:43 Procedure Stop Time: 08:46 Location of Patient: PreOp Indication: Acute Post-Operative Pain, Requested by Surgeon Sedation Type: Sedate with meaningful contact maintained Preparation: Sterile Prep Position: Left Lateral Needle Types: Pajunk Needle Gauge: 21 Ultrasound used to visualize needle placement: Yes Ultrasound used to observe medication spread: Yes Blood Aspirated: No Pain Paresthesia on Injection Noted: No Resistance on Injection: Normal Image Stored and Saved: Yes Events: Uneventful and Well Tolerated (Ropivacaine 0.5% 20 cc plus dexamethasone 4 mg)
[2024-05-21] MEDS: SENNOSIDES-DOCUSATE SODIUM 1 EACH TAB PO SCH (21:16)
[2024-05-21] MEDS: ASPIRIN 81 MG PO SCH (21:16)
[2024-05-21] MEDS: ONDANSETRON 4 MG/2 ML VIAL IVP PRN (22:14)
[2024-05-22] MEDS: oxyCODONE-APAP 7.5-325MG 1 EACH TAB PO PRN (01:57)
--- NOTE | 2024-05-22 06:56 | P.PN ---
Progress Note - Text 05/22/24 642am 69-year-old male status post total knee replacement. Patient has an On-Q pump for postop pain control, solution is running at 8 cc an hour with a dressing clean dry and intact patient has a VAS of 3. Plan to continue On-Q pump infusion
[2024-05-22 09:49] VITALS: BP 144/87; PULSE 63; RESP 20; TEMP 97.8
[2024-05-22 10:35] LABS: Basophils # (A) 0.01 X 10*3/uL (0.00-0.10); Basophils % (A) 0.1 %; Eosinophils # (A) 0.01 X 10*3/uL (0.04-0.35); Eosinophils % (A) 0.1 %; HCT 37.4 % (39.6-50.0); HGB 12.7 g/dL (13.0-17.0); Lymphocytes # (A) 1.88 X 10*3/uL (0.90-5.00); Lymphocytes % (A) 19.6 %; MCH 32.8 pg (27.0-32.0); MCV 96.6 FL (80.0-97.0); Mean Platelet Volume 9.8 FL (9.5-12.2); Monocytes % (A) 9.4 %; NRBC Per 100 WBC 0 X 10*3/uL (0.00-0.01); Neutrophils # (A) 6.78 X 10*3/uL (1.80-7.70); Neutrophils % (A) 70.6 %; Platelet Count 256 X 10*3/uL (140-440); RBC 3.87 X 10*6/uL (4.40-5.60); RDW 12.2 % (11.5-14.5)
[2024-05-22] MEDS ORDERED: CYCLOBENZAPRINE 10 MG TAB PO PRN (11:20)
--- NOTE | 2024-05-22 11:56 | P.DS ---
Providers Expected date of discharge: 05/22/24 Attending physician: Justin Ramey Consults: 05/21/24 09:10 Consult Physician Routine Consulting Provider: Omar Escobedo Consult Reason/Comments: post op medical management Do you want consulting provider notified?: Yes Primary care physician: Amor Silva - Discharge Diagnosis(es) (1) Osteoarthritis of right knee Patient was admitted to the OR on 05/22/24 to undergo a right total knee arthroplasty. He had failed conservative measures as an outpatient and desired to proceed with elective surgery after given informed consent. He underwent the above procedure which he tolerated well without complication. Postoperative hospital course has remained without complication. On day of discharge he is afebrile, vital signs stable, labs within acceptable ranges, tolerating by mouth meds and diet, voiding without difficulty, positive flatus, denies abdominal pain or calf pain, pain is controlled on oral pain medication and has no new complaints. Wound is benign, neurovascular status is intact, calf is soft and nontender, abdomen soft and nontender. Review of systems is negative for numbness, tingling, fever, chills, chest pain, shortness of breath, nausea, vomiting, dizziness, headaches, slurred speech or other. Current Visit: Yes Status: Acute Priority: Medium Procedures: Right TKA Patient Condition at Discharge: Good Plan - Discharge Summary Discharge Rx Participant: Yes New Discharge Prescriptions: New Aspirin [Adult Low Dose Aspirin EC] 81 mg PO BID #60 tab Docusate [Colace] 100 mg PO BID #60 capsule oxyCODONE-APAP 7.5-325MG [Percocet 7.5-325 mg] 1 tab PO Q4HR PRN #30 tab PRN Reason: Pain No Action Omeprazole [PriLOSEC] 20 mg PO QAM Cetirizine HCl [Zyrtec] 10 mg PO QAM Losartan Potassium 50 mg PO QAM ondansetron HCL [Zofran] 8 mg PO DAILY PRN PRN Reason: Nausea Dilaudid Pain Pump 1 dose INTRATHECA CONTINUOUS Cholecalciferol (Vitamin D3) [Vitamin D3 (125 MCG = 5,000 IU)] 250 mcg PO DIRECTED HYDROcodone/APAP 7.5-325MG [[place] 7.5-325] 1 dose PO TID PRN PRN Reason: Pain Cyclobenzaprine [Flexeril] 10 mg PO BID PRN PRN Reason: Muscle Spasm Ferrous Sulfate [Iron (65 MG Elemental)] 65 mg PO QAM Multivitamins, Thera [Multivitamin (formulary)] 1 tab PO QAM Zinc With Vitamin C 1 tab PO QAM Cyanocobalamin (Vitamin B-12) [Vitamin B-12] 1,000 mcg PO DAILY Cholecalciferol (Vitamin D3) [Vitamin D3 (50 Mcg = 2000 Iu) Chew Tab] 2,000 unit PO QAM Sennosides-Docusate Sodium [Senokot-S] 50 mg PO BID Discharge Medication List Omeprazole [PriLOSEC] 20 mg PO QAM 02/24/17 [History] Cetirizine HCl [Zyrtec] 10 mg PO QAM 09/17/23 [History] Cyclobenzaprine [Flexeril] 10 mg PO BID PRN 09/17/23 [History] Dilaudid Pain Pump 1 dose INTRATHECA CONTINUOUS 09/17/23 [History] Losartan Potassium 50 mg PO QAM 09/17/23 [History] ondansetron HCL [Zofran] 8 mg PO DAILY PRN 09/17/23 [History] Cholecalciferol (Vitamin D3) [Vitamin D3 (125 MCG = 5,000 IU)] 250 mcg PO DIRECTED 09/18/23 [History] Cholecalciferol (Vitamin D3) [Vitamin D3 (50 Mcg = 2000 Iu) Chew Tab] 2,000 unit PO QAM 09/18/23 [History] Cyanocobalamin (Vitamin B-12) [Vitamin B-12] 1,000 mcg PO DAILY 09/18/23 [History] Ferrous Sulfate [Iron (65 MG Elemental)] 65 mg PO QAM 09/18/23 [History] Multivitamins, Thera [Multivitamin (formulary)] 1 tab PO QAM 09/18/23 [History] Zinc With Vitamin C 1 tab PO QAM 09/18/23 [History] HYDROcodone/APAP 7.5-325MG [[place] 7.5-325] 1 dose PO TID PRN 05/18/24 [History] Sennosides-Docusate Sodium [Senokot-S] 50 mg PO BID 05/18/24 [History] Aspirin [Adult Low Dose Aspirin EC] 81 mg PO BID #60 tab 05/22/24 [Rx] Docusate [Colace] 100 mg PO BID #60 capsule 05/22/24 [Rx] oxyCODONE-APAP 7.5-325MG [Percocet 7.5-325 mg] 1 tab PO Q4HR PRN #30 tab 05/22/24 [Rx] Follow up Appointment(s)/Referral(s): [facility] [NON[facility]STA[facility]] - 1-2 Days ([facility] will call you to schedule your in home physical therapy visits. ) Justin Ramey MD [STAFF PHYSICIAN] - 10 Days Activity/Diet/Wound Care/Special Instructions: WBAT Take meds as directed F/U in office keep wound clean and dry May shower in 3 days if no bleeding Discharge Disposition: HOME WITH HOME HEALTH SERVICES
[2024-05-22] MEDS: MULTIVITAMINS, THERA 1 EACH TAB PO SCH (12:28)
[2024-05-22] MEDS ORDERED: SENNOSIDES-DOCUSATE SODIUM 1 EACH TAB PO SCH (21:00)
[2024-05-23] MEDS ORDERED: PANTOPRAZOLE 40 MG TABLET PO SCH (09:00)
[2024-05-23] MEDS ORDERED: CHOLECALCIFEROL 25 MCG (1000 IU) TABLET PO SCH (09:00)
[2024-05-23] MEDS ORDERED: FERROUS SULFATE 325 MG TAB PO SCH (09:00)
[2024-05-23] MEDS ORDERED: CYANOCOBALAMIN 500 MCG TAB PO SCH (09:00)
[2024-05-23] MEDS ORDERED: LOSARTAN 50 MG TAB PO SCH (09:00)
[2024-05-23] MEDS ORDERED: LORATADINE 10 MG TAB PO SCH (09:00)
[2024-05-23] MEDS ORDERED: MULTIVITAMINS, THERA 1 EACH TAB PO SCH (09:00)
== END 2024-05-22 13:26 | disposition home health service (06) ==
LOC: OR 07:23 → 4SSUR 13:52 → OR 05-22 13:26
PROVIDERS: ATTEND Orthopaedic Surgery Sports Medicine
DX: M17.11 Unilateral primary osteoarthritis, right knee (principal); M21.161 Varus deformity, not elsewhere classified, right knee; G89.18 Other acute postprocedural pain; F10.90 Alcohol use, unspecified, uncomplicated; Z79.82 Long term (current) use of aspirin; Z79.899 Other long term (current) drug therapy; Z87.891 Personal history of nicotine dependence
CPT/HCPCS: 97161; 64999; 64448; 85025; 73560; 27447; C1776; C1713; C1751; J2250; J1100; J0690 ×3; J2405; J2795; J1171 ×2